=== PATIENT | male | born 1960 | race Caucasian/White ===

== ENCOUNTER → 2018-12-13 | Outpatient (CLI) | payer BC, OTHER ==
[~2018-12-13] VITALS: Ht 180.3 cm; Wt 108.9 kg
[~2018-12-13] MED LIST: CHLORTHALIDONE25 MG PO; CRESTOR10 MG PO; LOSARTAN POTASS50 MG PO; MOBIC15 MG PO; TRAMADOL 50 MG50 MG PO
[2018-12-13 13:41] VITALS: BP 147/91
--- NOTE | 2018-12-13 14:09 | NUR ---
Pain Clinic Assessment: 1. History of Osteoarthritis: Right Lower Extremity Left Upper Extremity History of Rheumatoid Arthritis: Not Applicable 2. Height: 5 ft. 11 in. 180.3 cm. Weight: 240.0 lb. oz. 108.864 kg. Patient's BMI: 33.5 3. Vital Signs: BP: 147/91 Pulse: 83 Resp: 16 Temp: 02 Sat: 97 ECG Mon: 4. Pain Intensity: 5 5. Fall Risk: Dizziness: N Needs help standing or walking: N Fallen in the last 3 months: N Fall risk comments: 6. Patient on Blood Thinner: None 7. History of Hypertension: Y 8. Opioid Therapy greater than 6 weeks: N Opiate Contract Signed: 9. Risk Assessment Tool Provided: 10. Functional Assessment Tool: 11. Recreational Drug Use: Never Drug Type: Tobacco Use: Current Every Day Smoker Tobacco Type: Cigarettes Amount or Packs/day: 1 How Many Years: 30 Alcohol Use: Yes Frequency: Weekly Quant: 12
--- NOTE | 2018-12-20 09:09 | HPC ---
[facility] [address] [place] [address] PAIN MANAGEMENT CONSULTATION Name: MARY ROLLE Room #: REG CL Merle.#: [id number] Admission: 12/13/18 Attend Phys: Berny Suazo DO Discharge: Date of : 58 Report #: [id number] THIS REPORT FOR: //name// CC: Berny Tovar DATE OF SERVICE: 12/13/2018 CHIEF COMPLAINT: Low back pain, left lower extremity pain with paresthesias. HISTORY OF PRESENT ILLNESS: As you know, the patient is a very pleasant 58-year-old male who reports acute onset of low back pain, left lower extremity pain that began 10/15/2018. The patient denies any specific injury or trauma that may have led to symptom occurrence. The patient has not had symptoms like this prior to this incident. He describes the pain as radiating from the back down the leg with the distribution between the knee and the ankle on the left side as painful with paresthesias. The patient discussed his case further with his PCP who trialed conservative treatment options, which unfortunately did not provide much improvement. He was subsequently then sent for MRI of the lumbar spine. Findings were such, the patient was then referred to our clinic to discuss options for treatment. The patient indicates today pain is continuous. He describes the pain as shooting, throbbing, numbness and tingling. He places current pain score 5/10, daily average of 6/10, worst pain has been is 8/10. The patient states that sitting and stretching exacerbates symptoms, standing and repositioning tends to improve pain. The patient has been referred to our service to discuss treatment options for suspected lumbar radiculopathy. PAST MEDICAL HISTORY: Dyslipidemia, hypertension, and osteoarthritis. PAST SURGICAL HISTORY: 1. Back surgery in 1987. 2. Herniorrhaphy in 1999. 3. Herniorrhaphy in 2008. 4. Total knee arthroplasty in 2018. SOCIAL HISTORY: The patient reports he is a smoker. He smokes 1 pack tobacco per day. He has done so for 30 years. He denies IV or illicit drug use. Admits to 12 alcohol beverages per week. He is currently employed in sales. He is working, not receiving workmen's compensation nor is he trying to obtain disability benefits. He is not in litigation in regards to pain. He is unaccompanied today. REVIEW OF SYSTEMS: Positive for fatigue and weakness, nocturia, kidney stones, [facility] [address] [place] [address] PAIN MANAGEMENT CONSULTATION Name: MARY ROLLE Room #: REG CLI Meron#: [id number] Admission: 12/13/18 Attend Phys: Berny Suazo DO Discharge: Date of : 58 Report #: [id number] low back pain, left lower extremity pain with paresthesias. All other review of systems is negative per 12-point review of systems other than those listed in history of present illness. Pain impact score 31/70 indicating moderate interference of daily activities secondary to pain. ALLERGIES: No known drug allergies. CURRENT MEDICATIONS: Tramadol 50 mg every 6 hours p.r.n. for pain, meloxicam 15 mg once a day, chlorthalidone 25 mg per day, losartan 50 mg per day, lovastatin 10 mg per day. IMAGING: MRI of the lumbar spine obtained on 12/10/2018 shows L2-L3 with moderate facet arthropathy. No significant central canal or neural foraminal stenosis. L3-L4, mild broad-based disk bulge, mild facet arthropathy, mild narrowing of the lateral recess with mild impingement on the descending L4 nerve roots. No central canal stenosis, no significant neural foraminal stenosis. L4-L5, severe facet arthropathy, central canal is not grossly narrowed, facets noted to be moderately narrowed, left greater than right foraminal stenosis. L5-S1 right paracentral disk protrusion, disk osteophyte complex contacting right S1 nerve root. No central canal neural foraminal stenosis. There is also noted severe left hydronephrosis. Left renal parenchyma appears markedly atrophic. PHYSICAL EXAMINATION: VITAL SIGNS: Blood pressure 147/91, pulse 83, respiratory rate 16 and unlabored. The patient is 97% on room air. Height 5 feet 11 inches tall, weight 240 pounds, BMI calculated 33.5. GENERAL: Well-developed, well-nourished, well-hydrated 58-year-old male appearing stated age, placing current pain score at 5/10. HEENT: Normocephalic, atraumatic. Pupils equal, round, and reactive to light. Extraocular muscles are intact. Sclerae nonicteric without injection. NEUROLOGIC: Cranial nerves 2-12 grossly intact. Speech fluent. The patient deemed a good historian. LUNGS: Clear, no wheeze, rhonchi or rales. CARDIOVASCULAR: Regular. No appreciable gallop or rub. ABDOMEN: Soft. Normoactive bowel sounds. EXTREMITIES: Show no clubbing, no cyanosis, and no edema. MUSCULOSKELETAL: Lower extremity strength appears equal and symmetrical 5/5, intact to light touch from L1 through S2 dermatomes. Seated straight leg raising negative. Supine straight leg raising positive on the left. Tolu's test negative. Modified Gaenslen's positive for axial low back pain. Ankle clonus negative. Babinski is negative. Gait is normal. Able to tandem walk. Stance is normal. Lumbar provocation testing is met with increasing axial back pain without radiation of symptoms. Deep tendon reflexes 2+/4 [facility] [address] [place] [address] PAIN MANAGEMENT CONSULTATION Name: MARY ROLLE [id number] Admission: 12/13/18 Attend Phys: Berny Suazo DO Discharge: Date of : 58 Report #: [id number] Achilles. Ankle clonus negative. Babinski is negative. ASSESSMENT: 1. Symptomatic lumbar radiculopathy. 2. Displacement of lumbar intervertebral disk with radiculopathy. 3. Lumbosacral spondylosis with radiculopathy. 4. Degeneration of lumbar spine. 5. Chronic intractable pain. PLAN: 1. Based on today's physical exam and history the patient has provided, the description the patient uses in regards to pain, the location of symptoms and the findings of his MRI, the likely source of the patient's symptoms is a lumbar radiculopathy. We also discussed with the patient the findings of his MRI that shows severe left hydronephrosis. 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 The patient at this time is not complaining of any issues that would be consistent with a passing kidney stone, but the hydronephrosis is definitely noted on the MRI. Further workup will be necessary for the hydronephrosis. In regards to the findings in the lumbar spine to correlate to the patient's left lower extremity symptoms, we believe his symptoms are related to the neural foraminal stenosis noted at the L4-L5 level. We discussed with the patient those findings and how they correlate to current symptoms. After that, we discussed the treatment options available. The following was discussed with the patient from a treatment standpoint. We discussed physical therapy, stretching exercises and core strengthening techniques. We discussed medication management utilizing neuropathic pain medications in the form of either amitriptyline, nortriptyline, Lyrica, Cymbalta or gabapentin. We discussed lumbar epidural injections under fluoroscopic guidance for which the patient was referred to our clinic. We discussed spinal cord stimulator and ultimately surgical decompression. After the review of the risks and benefits of all the proposed treatment options, the patient chose to move forward with a lumbar epidural injection under fluoroscopic guidance. 2. The patient was advised that third green party payer restrictions require the authorization be obtained before the patient could undergo an epidural injection. Authorization could take up to 24 hours to obtain. Once we have this authorization, we will have the patient return to undergo the first in a series of lumbar epidural injections. We are hopeful that we can have the patient return tomorrow to undergo the procedure. We will begin the authorization process. The patient will contact us in the morning. If we have this authorization, we will have him return to undergo the procedure. 3. No medication changes made at today's visit. The patient will continue current medical therapy as previously prescribed. 4. We will see the patient back in followup visit once we have the authorization to undergo a lumbar epidural injection under fluoroscopic guidance to address lumbar radicular symptoms. [address] [address] PAIN MANAGEMENT CONSULTATION Name: MARY ROLLE Room #: REG LOIS Nuñez#: [id number] Admission: 12/13/18 Attend Phys: Berny Suazo DO Discharge: Date of : 58 Report #: [id number] 5. We wish to thank Dr. David Tovar for the referral of the patient to our clinic. We will keep you apprised of his response to treatment, as we address suspected lumbar radiculopathy. Again, we wish to thank you for the opportunity to see this patient in consultation. <ELECTRONICALLY SIGNED> By: Berny Suazo DO 12/20/18 0909 [id number] Berny Suazo DO /nt
== END ==
LOC: PAIN 06:59
DX: M47.26 Other spondylosis with radiculopathy, lumbar region (principal); M51.16 Intervertebral disc disorders with radiculopathy, lumbar region; I10 Essential (primary) hypertension; E78.5 Hyperlipidemia, unspecified; M19.90 Unspecified osteoarthritis, unspecified site; G89.4 Chronic pain syndrome; Z79.899 Other long term (current) drug therapy

== ENCOUNTER → 2018-12-14 | Outpatient (CLI) | payer BC, OTHER ==
[~2018-12-14] VITALS: Ht 180.3 cm; Wt 108.9 kg
[2018-12-14 09:03] VITALS: BP 149/86
--- NOTE | 2018-12-14 09:13 | NUR ---
Pain Clinic Assessment: 1. History of Osteoarthritis: Right Lower Extremity Left Upper Extremity History of Rheumatoid Arthritis: Not Applicable 2. Height: 5 ft. 11 in. 180.3 cm. Weight: 240.0 lb. oz. 108.864 kg. Patient's BMI: 33.5 3. Vital Signs: BP: 149/86 Pulse: 82 Resp: 16 Temp: 02 Sat: 97 ECG Mon: 4. Pain Intensity: 5 5. Fall Risk: Dizziness: N Needs help standing or walking: N Fallen in the last 3 months: N Fall risk comments: 6. Patient on Blood Thinner: None 7. History of Hypertension: Y 8. Opioid Therapy greater than 6 weeks: N Opiate Contract Signed: 9. Risk Assessment Tool Provided: 10. Functional Assessment Tool: 11. Recreational Drug Use: Never Drug Type: Tobacco Use: Current Every Day Smoker Tobacco Type: Cigarettes Amount or Packs/day: 1 How Many Years: 30 Alcohol Use: Yes Frequency: Weekly Quant: 12
--- NOTE | 2018-12-20 09:09 | HPC ---
[facility] [address] [place] [address] PAIN MANAGEMENT CONSULTATION Name: MARY ROLLE Room #: REG CL Merle.#: [id number] Admission: 12/14/18 Attend Phys: Berny Suazo DO Discharge: Date of : 58 Report #: [id number] THIS REPORT FOR: //name// CC: Berny Tovar DATE OF SERVICE: 12/14/2018 REFERRING PHYSICIAN: Dr. David Tovar. CHIEF COMPLAINT: Low back pain, left lower extremity pain and paresthesias. HISTORY OF PRESENT ILLNESS: As you know, the patient is a very pleasant 58-year-old male who reports acute onset of low back pain, left lower extremity pain and paresthesia that began 10/15/2018. He denies any specific injury or trauma that led to pain development. He sought evaluation through his PCP who ultimately sent the patient to our clinic to trial treatment options for suspected lumbar radiculopathy. We saw the patient in consultation yesterday 12/13/2018 where we discussed the treatment options for lumbar radicular symptoms. He chose to undergo a lumbar epidural injection. He returns today in followup visit to undergo that procedure. He is placing pain today at 5/10. He denies any new injury or trauma over the past 24 hours that may have led to continuation of pain. ALLERGIES: No known drug allergies. CURRENT MEDICATIONS: Tramadol, meloxicam, chlorthalidone, losartan, lovastatin. SOCIAL HISTORY: The patient reports he is a smoker, smokes approximately 1 pack of tobacco per day. He has done so for 30 years. Denies IV or illicit drug use. Admits to 12 alcohol beverages per week. 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 IMAGING: No new imaging available. PHYSICAL EXAMINATION: VITAL SIGNS: Blood pressure 149/86, pulse 82, respiratory rate 16 and unlabored. The patient is 97% on room air. Height 5 feet 11 inches tall, weight 240 pounds, BMI calculated 33.5. GENERAL: Well-developed, well-nourished, well-hydrated exogenously obese 58-year-old male appearing stated age, placing current pain score 5/10. HEENT: Normocephalic, atraumatic. Pupils equal, round, reactive to light. EXTREMITIES: Show no clubbing, no cyanosis, and no edema. MUSCULOSKELETAL: The patient remains intact to light touch from L1 through S2 dermatomes. Seated straight leg raising negative. Supine straight leg raising [address] [address] PAIN MANAGEMENT CONSULTATION Name: MARY ROLLE Room #: REG CLI [facility]#: [id number] Admission: 12/14/18 Attend Phys: Berny Suazo DO Discharge: Date of : 58 Report #: [id number] positive on the left. CINDY test negative. Gait normal. ASSESSMENT: 1. Symptomatic lumbar radiculopathy. 2. Displacement of a lumbar intervertebral disk with radiculopathy. 3. Lumbosacral spondylosis with radiculopathy. 4. Degeneration of lumbar spine. 5. Chronic intractable pain. PLAN: 1. The patient returns today in followup visit having currently scheduled to be able to undergo a lumbar epidural injection under fluoroscopic guidance today. The patient and I discussed at length the risks and benefits of the procedure. These risks include, but are not necessarily limited to, bleeding, bruising, infection, worsening pain, no relief of pain, also risk of temporary or permanent muscle weakness, temporary or permanent nerve damage, possible paralysis, post-dural puncture, headache and . The patient states he understood and wished to proceed. 2. No medication changes made at today's visit. The patient will continue current medical therapy as previously prescribed. 3. We will see the patient back in followup visit and on an as needed basis for the next in the series of lumbar epidural injections. We did place a tentative appointment for 01/17/2019 for a possible next in the series of epidural injections. PROCEDURE NOTE DESCRIPTION OF PROCEDURE: L5-S1 left paramedian epidural steroid injection under fluoroscopic guidance. This is the first procedure of the first series that the patient is undergoing. After obtaining written consent, the patient was taken back to the fluoroscopy suite, placed in a prone position with pillow under the abdomen to decrease lumbar lordosis. The skin overlying the lumbosacral area was then prepped and draped in aseptic fashion. The L5-S1 vertebral interspace was then identified by AP fluoroscopy. The skin and subcutaneous tissue overlying the target site of injection was anesthetized with 3 mL 1% lidocaine. A 20-gauge 3-1/2-inch Tuohy needle was then advanced under fluoroscopic guidance towards the epidural space using a left paramedian approach. The epidural space was identified using loss of resistance to air technique. After negative aspiration for heme or cerebrospinal fluid, a total of 1 mL of Omnipaque was injected. A lumbar epidurogram was confirmed using both AP and lateral fluoroscopy. After negative aspiration for heme or cerebrospinal fluid, 5 mL of a solution containing 2 mL of 40 mg per mL, 80 mg total triamcinolone along with 3 mL of lidocaine 1% was injected in increments. Contrast spread was noted [address] [address] PAIN MANAGEMENT CONSULTATION Name: ROLLEMARYAmerica GASPAR Room #: REG CLI Merle#: [id number] Admission: 12/14/18 Attend Phys: Berny Suazo DO Discharge: Date of : 58 Report #: [id number] posterior epidural space. The needle was then retracted approximately half way and needle tract flushed with 1 mL of 1% lidocaine. Needle was then removed. There were no apparent sensory or motor deficits in the lower extremity following the procedure. A sterile bandage was placed over the injection site. The heart rate, pulse, oximetry and blood pressure were continuously monitored after the procedure. There were no apparent complications. The patient tolerated the procedure well and was carefully escorted to the recovery room in stable condition. There were no apparent complications. After meeting discharge criteria, the patient was then discharged home. <ELECTRONICALLY SIGNED> By: Berny Suazo DO 12/20/18 0909 [id number] Berny Suazo DO /nt
== END | disposition home or self-care (01) ==
LOC: PAIN 06:49
DX: M51.16 Intervertebral disc disorders with radiculopathy, lumbar region (principal); M51.26 Other intervertebral disc displacement, lumbar region; M47.27 Other spondylosis with radiculopathy, lumbosacral region; G89.29 Other chronic pain; F17.210 Nicotine dependence, cigarettes, uncomplicated; Z79.899 Other long term (current) drug therapy

== ENCOUNTER → 2019-01-17 | Outpatient (CLI) | payer BC, OTHER ==
[~2019-01-17] VITALS: Ht 180.3 cm; Wt 112.9 kg
[~2019-01-17] MED LIST changes: +TADALAFIL5 M1 PO
[2019-01-17 08:25] VITALS: BP 142/83
--- NOTE | 2019-01-17 08:32 | NUR ---
Pain Clinic Assessment: 1. History of Osteoarthritis: Right Lower Extremity Left Upper Extremity History of Rheumatoid Arthritis: Not Applicable 2. Height: 5 ft. 11 in. 180.3 cm. Weight: 249.0 lb. oz. 112.946 kg. Patient's BMI: 34.7 3. Vital Signs: BP: 142/83 Pulse: 96 Resp: 18 Temp: 02 Sat: 97 ECG Mon: 4. Pain Intensity: 6 5. Fall Risk: Dizziness: N Needs help standing or walking: N Fallen in the last 3 months: N Fall risk comments: 6. Patient on Blood Thinner: None 7. History of Hypertension: Y 8. Opioid Therapy greater than 6 weeks: N Opiate Contract Signed: 9. Risk Assessment Tool Provided: 0-LOW 10. Functional Assessment Tool: 11. Recreational Drug Use: Never Drug Type: Tobacco Use: Current Every Day Smoker Tobacco Type: Cigarettes Amount or Packs/day: 1 PACK How Many Years: 30 Alcohol Use: Yes Frequency: Daily Quant: 3
--- NOTE | 2019-01-25 09:31 | HPC ---
[facility] [address] [place] [address] PAIN MANAGEMENT CONSULTATION Name: SARIAHMARYAmerica GASPAR Room #: REG CL MHansa.#: [id number] Admission: 01/17/19 ������������������ Attend Phys: Berny Suazo DO Discharge: ������������������ Date of : 58 Report #: [id number] THIS REPORT FOR: //name// CC: Berny Tovar DATE OF SERVICE: 01/17/2019 CHIEF COMPLAINT: Low back pain, left lower extremity pain and paresthesias. HISTORY OF PRESENT ILLNESS: As you know, the patient is a very pleasant 58-year-old male who returns today in followup visit requesting to undergo next in the series of lumbar epidural injections. We had the patient undergo an epidural injection on 12/14/2018 which provided according to the patient 100% improvement in overall pain, but unfortunately his symptoms have begun to return. He is now placing pain score 6/10, describes the pain as constant, shooting, exacerbated with lying down, sitting and standing. Despite this elevated pain score, the patient indicates improvement remains at about 60%. He returns today to undergo next in the series of epidural injections to build on success of previous intervention. He denies new injury or trauma that has led to recurrence of pain. ALLERGIES: No known drug allergies. CURRENT MEDICATIONS: Tramadol, meloxicam, chlorthalidone, losartan, lovastatin. SOCIAL HISTORY: The patient reports he is a smoker, smokes approximately 1 pack per day and has done so for 30 years. Denies IV or illicit drug use. Admits 12 alcohol beverages per week. 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 IMAGING: No new imaging available. PHYSICAL EXAMINATION: VITAL SIGNS: Blood pressure 142/83, pulse 96, respiratory rate 18 and unlabored. The patient is 97% on room air. Height 5 feet 11 inches tall, weight 249 pounds, and BMI calculated 34.7. GENERAL: Well-developed, well-nourished, well-hydrated exogenously obese 58-year-old male appearing stated age, pain is rated today at around 6/10. HEENT: Normocephalic, atraumatic. Pupils equal, round, reactive to light. EXTREMITIES: Show no clubbing, no cyanosis, and no edema. MUSCULOSKELETAL: Lower extremity strength equal and symmetrical 5/5, intact to light touch from L1 through S2 dermatomes. Seated straight leg raising is negative. Supine straight leg raising is positive on the left. Gait is mildly antalgic favoring left lower extremity over right due to pain with upon arising [address] [address] PAIN MANAGEMENT CONSULTATION Name: MARY ROLLE Room #: REG [facility].#: [id number] Admission: 01/17/19 ������������������ Attend Phys: Berny Suazo DO Discharge: ������������������ Date of : 58 Report #: [id number] from a seated position. His gait does improve with further ambulation. ASSESSMENT: 1. Symptomatic lumbar radiculopathy. 2. Displacement of lumbar intervertebral disk with radiculopathy. 3. Lumbosacral spondylosis with radiculopathy. 4. Lumbar degeneration. 5. Chronic intractable pain. PLAN: 1. The patient has returned today in followup visit to undergo next in the series of lumbar epidural injections under fluoroscopic guidance. He has noted excellent benefit with previous epidural injection, but unfortunately his symptoms have begun to return. He returns today in followup visit to undergo next in the series of lumbar epidural injections. He has been advised risks and benefits of the procedure. He states understood and wished to proceed. 2. No medication changes made at today's visit. The patient will continue current medical therapy as prior prescribed. 3. We will see the patient back in followup visit on an as needed basis for possible next in the series of lumbar epidural injections. We did discuss today that if this epidural injection does not provide good benefit options may require medication changes, spinal cord stimulator therapy or possibly even surgical consultation. We will determine if this is necessary based on the efficacy of the next in the series of epidural injection provided today. DESCRIPTION OF PROCEDURE: L5-S1 left paramedian epidural steroid injection under fluoroscopic guidance. After obtaining written consent, the patient was taken back to the fluoroscopy suite, placed in a prone position with pillow under the abdomen to decrease lumbar lordosis. The skin overlying the lumbosacral area was then prepped and draped in aseptic fashion. The L5-S1 vertebral interspace was then identified by AP fluoroscopy. The skin and subcutaneous tissue overlying the target site of injection was anesthetized with 3 mL 1% lidocaine. A 20-gauge 3-1/2-inch Tuohy needle was then advanced under fluoroscopic guidance towards the epidural space using a left paramedian approach. The epidural space was identified using loss of resistance to air technique. After negative aspiration for heme or cerebrospinal fluid, a total of 1 mL of Omnipaque was injected. A lumbar epidurogram was confirmed using both AP and lateral fluoroscopy. After negative aspiration for heme or cerebrospinal fluid, 5 mL of a solution containing 2 mL of 40 mg per mL, 80 mg total triamcinolone along with 3 mL of lidocaine 1% was injected in increments. Contrast spread was noted posterior epidural space. The needle was then retracted approximately half way and needle tract flushed with 1 mL of 1% lidocaine. Needle was then removed. There were no apparent sensory or motor deficits in the lower extremity [address] [address] PAIN MANAGEMENT CONSULTATION Name: MARY ROLLE Room #: REG LOIS Nuñez#: [id number] Admission: 01/17/19 ������������������ Attend Phys: Berny Suazo DO Discharge: ������������������ Date of : 58 Report #: [id number] following the procedure. A sterile bandage was placed over the injection site. The heart rate, pulse, oximetry and blood pressure were continuously monitored after the procedure. There were no apparent complications. The patient tolerated the procedure well and was carefully escorted to the recovery room in stable condition. There were no apparent complications. After meeting discharge criteria, the patient was then discharged home. ��������������������������������������������� <ELECTRONICALLY SIGNED> ���������������������������������������� By: Berny Suazo DO ��������������������������������������������� 01/25/19 0931 [id number] Berny Suazo DO /nt
== END | disposition home or self-care (01) ==
LOC: PAIN 06:45
DX: M51.16 Intervertebral disc disorders with radiculopathy, lumbar region (principal); M47.27 Other spondylosis with radiculopathy, lumbosacral region; G89.29 Other chronic pain; F17.210 Nicotine dependence, cigarettes, uncomplicated; Z98.890 Other specified postprocedural states; Z79.899 Other long term (current) drug therapy